=== PATIENT | female | born 1975 | race Caucasian/White ===

== ENCOUNTER 2022-12-05 23:35 | Emergency (ER) | payer BC, SELFPAY ==
[2022-12-05 23:35] VITALS: BP 130/96; PULSE 78; RESP 16; TEMP 36.8; O2SAT 97; BMI 37.8
--- NOTE | 2022-12-05 23:38 | XR_ITS ---
PROCEDURE INFORMATION: Exam: XR Left Hand Exam date and time: 12/05/2022 11:47 PM Age: 47 years old Clinical indication: Injury or trauma; Other: Object fell on PT; Hand; Left; Patient HX: Shelf fell on patient, laceration near 3rd mcp joint. ; Additional info: Pain TECHNIQUE: Imaging protocol: Radiologic exam of the left hand. Views: 3 or more views. COMPARISON: No relevant prior studies available. FINDINGS: Bones/joints: Normal. No fracture identified. Soft tissues: Normal. IMPRESSION: No acute findings.
--- NOTE | 2022-12-05 23:38 | XR_ITS ---
PROCEDURE INFORMATION: Exam: XR Left Shoulder Exam date and time: 12/05/2022 11:44 PM Age: 47 years old Clinical indication: Left; Patient HX: Shelf fell on shoulder, C/O pain TECHNIQUE: Imaging protocol: Radiologic exam of the left shoulder. Views: 2 or more views. COMPARISON: No relevant prior studies available. FINDINGS: Bones/joints: Possible partial posterior subluxation without complete dislocation of the humeral head in relation to the glenoid may be present. No evident fracture. No other bony abnormality. Soft tissues: Normal. IMPRESSION: Possible partial posterior subluxation of the humerus.
--- NOTE | 2022-12-06 00:15 | HMH.EDWNDL ---
Discharge Plan Disposition Patient Disposition: Home, Self-Care Prescriptions Prescriptions: New cephalexin [cephalexin] 500 mg capsule 500 mg PO TID Qty: 30 0RF Referrals Follow up/Referrals: Provider,Referral, MD [Primary Care Provider] - See instructions Clinical Impressions Clinical Impression: Laceration, Extensor tendon laceration of hand with open wound, Sprain of left shoulder Instructions Patient Instructions: DI for Laceration Repair Discharge ED Provider: Abilio (ED)Cristhian Wound/Laceration HPI General Chief Complaint: Wound/Laceration Stated Complaint: laceration Time Seen by Provider: 12/06/22 00:15 Mode of Arrival: EMS Source of Information: Patient and Medical Record Limitations: No Limitations Description of Symptoms (Recalled from ER Triage Doc. by RN): pt states was putting a shelf togerther and it fell and landedon lt shoulder. pt c/o lacertion on lt hand and unable to move lt middle and ring finger and lt shoulder pain History of Present Illness HPI narrative: pt put lt hand through glass shelf with lac lt hand and also injured lt shoulder -pt is lt handed Onset (ago): hour(s) Extremity Location: Left: shoulder and hand Place: home Context: accidental Associated symptoms: none Related Data Previous Rx's Medication Instructions Recorded cephalexin 500 mg capsule 500 mg PO TID #30 caps 12/06/22 Allergies Allergy/AdvReac Type Severity Reaction Status Date / Time NSAIDS (Non-Steroidal AdvReac Verified 12/05/22 23:38 Anti-Inflamma [facility] Disclaimer: The information contained in this section may have been updated after the patient was seen, as this information can be updated by other users. Social History Smoking Status: Never smoker alcohol intake: never current occupational status: employed Travel in the last 8 weeks: None ROS Obtained: Yes All systems reviewed & no additional complaints except as documented Physical Exam General General appearance: alert Head Head exam: normocephalic Eye Eye exam: Present PERRL and EOMI ENT ENT exam: Present mucous membranes moist Neck Neck exam: Present trachea midline Respiratory Respiratory exam: Absent respiratory distress Cardiovascular Cardiovascular exam: Present regular rate Abdominal Exam Abdominal exam: Present soft Extremities Exam Extremities exam: Present other (lt hand with 1 cm lac with flex deformity lt 3rd figer ) Neurological Exam Neurological exam: Present alert, oriented X3 and CN II-XII intact Psychiatric Psychiatric exam: Present normal affect Skin Skin exam: Absent rash Medical Decision Making Medical Records Medical records reviewed: Yes I reviewed the patient's medical records. Mryon Inquiry Pt receiving controlled substance: No Vital Signs: 12/05/22 23:35 12/06/22 02:06 Temperature 98.3 F 98.3 F Temperature Source Oral Oral Pulse Rate 71 Pulse Rate [Right] 78 Respiratory Rate 16 16 Blood Pressure 128/69 Blood Pressure [Right Arm] 130/96 H Blood Pressure Mean [Right Arm] 107 02 Sat by Pulse Oximetry 97 Lab Data Lab results reviewed: Yes I reviewed the patient's lab results. Orders (Tests/Meds): ORDERS Category Date Time Status CT shoulder LT wo con Stat Cat Scan 12/06/22 01:05 Completed XR hand LT min 3V Stat Exams 12/05/22 23:38 Completed XR shoulder LT min 2V Stat Exams 12/05/22 23:38 Completed Radiology Data #1: Image(s): Chest and Shoulder Image Reviewed: Yes I have reviewed radiologist's interpretation Preliminary Findings: No Fracture Seen CT Data CT Scan: Other (shoulder) Time Received: 02:[address] Reviewed: Yes I have viewed the radiologist's interpretation Preliminary Findings: No Fracture Seen US Data ED US Reviewed: Yes I have viewed radiologist's interpretation Physician Consults Physician Consulted: hand Reason -: Pt condition Medical Decision Narrative: has lac with ext tendon lac and wi
--- NOTE | 2022-12-06 00:32 | PC.NURSE ---
called [facility] to speak with hand surgeon
--- NOTE | 2022-12-06 00:46 | PC.NURSE ---
JORY Storm speaking with at this time
--- NOTE | 2022-12-06 01:05 | CT_ITS ---
PROCEDURE INFORMATION: Exam: CT Left Upper Extremity Without Contrast, Shoulder Exam date and time: 12/06/2022 1:23 AM Age: 47 years old Clinical indication: Abnormal findings; Abnormal imaging study of the limbs; Lt shoulder; Additional info: Abnormal xray TECHNIQUE: Imaging protocol: Computed tomography of the left upper extremity without contrast. Exam focused on the shoulder. Radiation optimization: All CT scans at this facility use at least one of these dose optimization techniques: automated exposure control; mA and/or kV adjustment per patient size (includes targeted exams where dose is matched to clinical indication); or iterative reconstruction. REPORTING DATA: Count of CT and Cardiac NM exams in prior 12 months: This patient has received 0 known CTs and 0 known cardiac nuclear medicine studies in the 12 months prior to the current study. COMPARISON: CR XR SHOULDER LT MIN 2V 12/05/2022 11:44 PM FINDINGS: Bones/joints: No acute fracture. Os acromiale. Mild degenerative changes of acromioclavicular joint. No dislocation. Soft tissues: Minimal focal soft tissue stranding. IMPRESSION: No fracture. If pain persists, consider nonemergent MRI for further evaluation.
--- NOTE | 2022-12-06 01:27 | PC.NURSE ---
Hand cleaned and covered with dressing. Small volar splint placed onto the patients Left hand/wrist per MD request. CR
[2022-12-06 02:06] VITALS: BP 128/69; PULSE 71; RESP 16; TEMP 36.8; O2SAT 98
== END 2022-12-06 02:21 | disposition home or self-care (01) ==
PROVIDERS: Emergency Provider Emergency Medicine
DX: S66.323A Laceration of extensor muscle, fascia and tendon of left middle finger at wrist and hand level, initial encounter (principal); S66.324A Laceration of extensor muscle, fascia and tendon of right ring finger at wrist and hand level, initial encounter; S43.402A Unspecified sprain of left shoulder joint, initial encounter; W25.XXXA Contact with sharp glass, initial encounter; W20.8XXA Other cause of strike by thrown, projected or falling object, initial encounter
CPT/HCPCS: 12041; 73030; 73130; 73200; 99284; 99285

== ENCOUNTER → 2022-12-21 09:15 | Outpatient (CLI) | payer BC, SELFPAY ==
[2022-12-21 19:36] LABS: Amphetamine/Metha Screen,Urine Negative ng/ml (<1000)
[2022-12-21 19:37] LABS: Barbiturates Screen,Urine Negative ng/ml (<200)
[2022-12-21 19:38] LABS: Benzodiazepines Screen,Urine Negative ng/ml (<200); Cannabinoid Screen,Urine Negative ng/ml (<50)
[2022-12-21 19:39] LABS: Cocaine Screen,Urine Negative ng/ml (<300)
[2022-12-21 19:40] LABS: Methadone Screen,Urine Negative ng/ml (<300); Opiate Screen,Urine Negative ng/ml (<300)
[2022-12-21 19:41] LABS: Phencyclidine Screen,Urine Negative ng/ml (<25)
== END ==
PROVIDERS: PCP Nurse Practitioner Family; Visit Provider Nurse Practitioner Family
DX: Z79.899 Other long term (current) drug therapy (principal)
CPT/HCPCS: 80305

== ENCOUNTER 2022-12-27 19:43 | Emergency (ER) | payer BC, SELFPAY ==
[2022-12-27] VITALS (7 sets, daily range): BP systolic 133–169; BP diastolic 73–91; PULSE 64–83; RESP 16–24; TEMP 37–37.2; O2SAT 96–99; BMI 37.8
--- NOTE | 2022-12-27 19:47 | ECG_ITS ---
APPROVED REPORT Exam: Resting ECG HR:76 bpm ECG Measurements Heart Rate 76 AXES MD 151 P 56 QRSd 86 QRS 17 QT 369 T 20 QTc 400 Conclusion SINUS RHYTHM NORMAL ECG UNCONFIRMED REPORT Electronically signed by : Kayden Walter MD 12/27/2022 21:10:49
--- NOTE | 2022-12-27 20:03 | XR_ITS ---
PROCEDURE INFORMATION: Exam: XR Chest Exam date and time: 12/27/2022 8:08 PM Age: 47 years old Clinical indication: Sternal or substernal pain; Additional info: Chest pain TECHNIQUE: Imaging protocol: Radiologic exam of the chest. Views: 2 views. COMPARISON: CT SHOULDER LT WO CON 12/06/2022 1:23 AM FINDINGS: Lungs: Unremarkable. No consolidation. Pleural spaces: Unremarkable. No pleural effusion. No pneumothorax. Heart/Mediastinum: Unremarkable. No cardiomegaly. Bones/joints: Moderate thoracic scoliosis. No acute fracture. IMPRESSION: No acute disease
--- NOTE | 2022-12-27 20:21 | HMH.EDCP ---
Discharge Plan Disposition Patient Disposition: Home, Self-Care Chief Complaint: Chest Pain Prescriptions Prescriptions: No Action valacyclovir [Valtrex] 1 gram tablet 1,000 mg PO Q8H 7 Days Qty: 21 0RF Rx Instructions: 1000mg TID x 7 days then 1000mg daily valacyclovir [Valtrex] 1 gram tablet 1,000 mg PO DAILY 30 Days Qty: 30 3RF duloxetine [Cymbalta] 60 mg capsule,delayed release(DR/EC) 60 mg PO DAILY Qty: 30 2RF pregabalin 150 mg capsule 150 mg PO BID Qty: 60 0RF Referrals Follow up/Referrals: Young Swartz APRN [Primary Care Provider] - See instructions Clinical Impressions Clinical Impression: Atypical chest pain, Seizure-like activity Instructions Patient Instructions: DI for Atypical Chest Pain Discharge ED Provider: Abilio (ED),Cristhian Coughlin Chest Pain HPI General Chief Complaint: Chest Pain Stated Complaint: Chest Pain Time Seen by Provider: 12/27/22 20:00 Mode of Arrival: Ambulatory Source of Information: Patient and Medical Record Limitations: No Limitations Description of Symptoms (Recalled from ER Triage Doc. by RN): pt to ER POV, ambulatory, complaints of chest pain that statrted two days ago after dx from PCP of shingles. Descirbes pain a pressure in center of chest. Pt also experiences syncope this afternoon without hitting head. Experiencing n/v/d past week. hx of heart attack with cath in 2020. History of Present Illness HPI narrative: hx of chest pain and recent dx of shingles - pt with reported near syncopal episode - also has dec po intake over the last 2 days - MD complaint: chest pain Onset (ago): day(s) Duration: intermittent Activity at onset: during rest Severity: moderate Risk Factors for CAD: Family Hx of CAD Treatments prior to or on arrival for Cardiac Chest Pain: none BEATA Score for Non-Stemi Age of Patient: 40-49 years old Heart Rate: 50-69 bpm Systolic Blood Pressure: 120-139 mmhg Serum Creatinine: 0.80-1.19 mg/dl CHF Killip Class: I-No CHF Other Risk Factors: None Non-Stemi Risk Score: 69 Risk Stratification: 1-108 = Low Risk Related Data On Oral Contraceptives: No Previous Rx's Medication Instructions Recorded duloxetine 60 mg capsule,delayed 60 mg PO DAILY #30 caps 12/21/22 release (Cymbalta) pregabalin 150 mg capsule 150 mg PO BID #60 caps 12/21/22 valacyclovir 1 gram tablet 1,000 mg PO DAILY 30 days #30 tabs 12/21/22 (Valtrex) valacyclovir 1 gram tablet 1,000 mg PO Q8H 7 days #21 tabs 12/21/22 (Valtrex) Allergies Allergy/AdvReac Type Severity Reaction Status Date / Time NSAIDS (Non-Steroidal AdvReac Verified 12/21/22 14:59 Anti-Inflamma PFSH [facility] Disclaimer: The information contained in this section may have been updated after the patient was seen, as this information can be updated by other users. Surgical History (Updated 12/21/22 @ 15:02 by Jennifer Wade) History of hysterectomy History of tonsillectomy History of tubal ligation Family History Other Asthma Hypertension Social History Smoking Status: Former smoker alcohol intake: never current occupational status: employed Travel in the last 8 weeks: None ROS Obtained: Yes All systems reviewed & no additional complaints except as documented Physical Exam General General appearance: alert Head Head exam: normocephalic Eye Eye exam: Present PERRL and EOMI; Absent scleral icterus ENT ENT exam: Present mucous membranes moist Neck Neck exam: Present trachea midline Respiratory Respiratory exam: Absent respiratory distress Cardiovascular Cardiovascular exam: Present regular rate Abdominal Exam Abdominal exam: Present soft Extremities Exam Extremities exam: Present full ROM and other (lt upper ext in splint ) Neurological Exam Neurological exam: Present alert, oriented X3 and CN II-XII intact; Absent motor sensory deficit Psychiatric Psyc
[2022-12-27 20:35] LABS: Basophils % 0.2 % (0.1-2.0); Eosinophils % 0.2 % (0.1-12.0); Hemoglobin 13.7 g/dL (12.2-16.2); Lymphocytes # 1.7 K/mm3 (0.7-4.5); Lymphocytes % 11.6 % (10-50); Mean Corpuscular Hemoglobin 27.2 pg (27.0-31.2); Mean Corpuscular Volume 85.1 fl (81-99); Monocytes # 0.6 K/mm3 (0.1-1.0); Monocytes % 4.1 % (1.7-9.3); Neutrophils # 12.3 K/mm3 (1.8-7.8); Neutrophils % 83.9 % (37.0-80.0); Platelet Count 318 K/mm3 (142-424); Red Blood Count 5.05 M/mm3 (4.20-5.40); Red Cell Distribution Width 13.4 % (11.5-17.5); White Blood Count 14.6 K/mm3 (4.8-10.8)
[2022-12-27 20:41] LABS: Anion Gap 12.9 mEq/L (5-15); Blood Urea Nitrogen 14 mg/dl (7-17); Calcium 8.9 mg/dl (8.4-10.2); Carbon Dioxide 27 mmol/L (22.0-30.0); Chloride 107 mmol/L (98-107); Creatinine Clearance Estimated 111 mL/min (50-200); Estimated Glomerular Filt Rate 67 ml/min (>60); GFR (African American) 81 ML/MIN (>60); Glucose 133 mg/dl (74-100); Magnesium 1.9 mg/dl (1.6-2.3); Potassium 3.9 mmoL/L (3.5-5.1); Sodium 143 mmol/L (136-145)
[2022-12-27 20:58] LABS: Free T4 (Free Thyroxine) 0.79 ng/dl (0.78-2.19)
[2022-12-27 21:03] LABS: Troponin I < 0.01 ng/ml (0.00-0.034)
--- NOTE | 2022-12-27 21:37 | PC.NURSE ---
Addendum entered by Ganesh Whitfield RN 12/27/22 21:55: This event occurred approx at 2030 on 12/27/22 Original Note: Patient presenting with seizure like activity in room. When entering room, patient tracking this RN with eyes when walking to bedside. Upon assessment patient presents with eyes open, jerking and shaking movements making gagging sounds. Patient remains at 99% O2 saturation on room air. After jerking and shaking cease, patient immediately asks where is my sister? When patient asked her name she responds with crystal . No slurring or aphasia present. Seizure pads placed for patient safety. Patient will make eye contact with RN when orientation questions asked, but when instructed to follow finger with eyes only without moving head, patient cannot complete. Patient asking multiple questions about son, and whereabouts. Clear, concise speak present.
--- NOTE | 2022-12-27 21:39 | PC.NURSE ---
pt sister alerted us to the pt having a seizure like activity upon entering the room the pt was shaking and jerking around in the bed and making a gagging sound the pts vital signs were at baseline and the pt was immediatly responsive to her name. pt did not have a notable postictal period.
--- NOTE | 2022-12-27 22:30 | PC.NURSE ---
Patient with c/o headache at 10/10 pain. Attempted to medicate patient with 650mg tylenol, to which patient refused. She started to raise her voice, and yell You all think I'm pill seeking. I cant believe that you all won't give me anything stronger than tylenol. I can get that over the counter. You all don't care that I am in pain. Patient refused to take tylenol medication provided. Patient then states that you dont care that Im going to get another night of no sleep. When my son with special needs acts up, I will bring him to you all to watch. Patient is very upset with care at this time. Wishes to speak with Doctor. notified.
--- NOTE | 2022-12-28 00:55 | PC.NURSE ---
@ 7800 -This RN and MD at bedside to review results. Pt became upset and said You're not supposed to give results to somebody else before me, the patient . Dr. Knox reported, well I apologize, is this not someone you'd trust to have back here and know your results? . Pt stated I do trust her but you're not supposed to talk to her first. And you are acting like I am drug seeking and giving me tylenol for shingles, come on . MD stated I can give you what I feel is appropriate to treat you . Pt stated, I can get tylenol at the house and I can tell it by your face you think I am drug seeking and I'm not . reported that she was seen by Young in the office on 12/21 and pt refused stating I have only had this for 3 days and tylenol won't do anything . Pt identifies the person at her bedside as a friend but earlier this shift pt called this person her sister. MD stated when her sister asked for a blanket, MD stated her tests so far have been normal . 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 Pt was coming off the bed with her IV and tubing wrapped in the railing, I assisted her back into bed and removed her IV from her Right AC and dressing applied. She and her sister/friend collected her phone, purse and shoes, and she left the room. She was yelling in the hallway of You don't have to follow me out, I'm not drug seeking! Pt was shown to the exit.
== END 2022-12-27 22:56 | disposition home or self-care (01) ==
PROVIDERS: Emergency Provider Emergency Medicine; PCP Nurse Practitioner Family
DX: R07.89 Other chest pain (principal); R56.9 Unspecified convulsions; Z87.891 Personal history of nicotine dependence
CPT/HCPCS: 71046; 80048; 83735; 84439; 84484; 85025; 93005; 96360; 99285

== ENCOUNTER 2022-12-28 11:57 | Emergency (ER) | payer BC, SELFPAY ==
[2022-12-28] VITALS (7 sets, daily range): BP systolic 118–169; BP diastolic 72–91; PULSE 53–72; RESP 16–25; TEMP 36.6–36.8; O2SAT 98–100; BMI 33.9
[2022-12-28 12:22] LABS: Microscopic, Urine URINE MICROSCOPIC (MICROSCOPIC)
--- NOTE | 2022-12-28 12:24 | CT_ITS ---
FINAL REPORT CLINICAL HISTORY: Seizures FINDINGS: Axial images of the head were obtained without contrast. Coronal and sagittal reformatted images were also obtained.This study was performed with techniques to keep radiation doses as low as reasonably achievable (ALARA). Individualized dose reduction techniques using automated exposure control or adjustment of mA and/or kV according to the patient''s size were employed. There is no evidence of intracranial hemorrhage or mass. The ventricular size is within normal limits. There is no evidence of shift of the midline structures. No abnormal extra axial fluid collection is identified. No skull abnormality is seen on the bone window images. IMPRESSION: No acute intracranial abnormality. Reviewed, Interpreted and Dictated by Garth Connors III, MD Transcribed by Sheela Rowe Authenticated and [facility]
--- NOTE | 2022-12-28 12:25 | HMH.EDSEIZ ---
Discharge Plan Disposition Patient Disposition: Home, Self-Care Prescriptions Prescriptions: New levetiracetam [Keppra] 500 mg tablet 500 mg PO BID 14 Days Qty: 28 0RF No Action duloxetine [Cymbalta] 60 mg capsule,delayed release(DR/EC) 60 mg PO DAILY pregabalin 150 mg capsule 150 mg PO BID tramadol 50 mg Tablet 50 mg PO Q6H PRN (Reason: Broken left wrist) Referrals Follow up/Referrals: Young Swartz APRN [Primary Care Provider] - See instructions Clinical Impressions Clinical Impression: Generalized seizure Instructions Patient Instructions: DI for Seizure Disorder -- Adult, DI for Seizure (Not Epilepsy/Seizure Disorder), DI for Seizure Disorder -- Child Discharge ED Provider: Redd Muse Seizures HPI General Chief Complaint: Seizure Stated Complaint: seizure Time Seen by Provider: 12/28/22 12:15 Mode of Arrival: EMS Source of Information: Patient and EMS Limitations: Altered Mental Status Description of Symptoms (Recalled from ER Triage Doc. by RN): pt to ed via ems c/o seizure-like activity. per ems, pt was leaving pcp office where she was being seen for new onset seizures. pt states she has a referral to see neurology. on arrival to ed, pt reports a headache and back pain. ems states she was lowered to the concrete when her symptoms started. History of Present Illness HPI Narrative: 47-year-old white female presents with seizures. She was at the doctor's office and had a seizure just outside the waiting room. She has had previous seizures most of them occurring recently. I witnessed that is accompanying her reports that seizure she has witnessed are usually 45 seconds to a minute and a half she reports they are generalized in character the patient is also awaiting a surgery on her left wrist and hand for injuries sustained when she fell through a window. She apparently cut some tendons and which were to be repaired. She is allergic to nonsteroidals and has a history of migraines Related Data Home Medications Medication Instructions Recorded Confirmed duloxetine 60 mg capsule,delayed 60 mg PO DAILY Depression 12/28/22 12/28/22 release (Cymbalta) pregabalin 150 mg capsule 150 mg PO BID Pain 12/28/22 12/28/22 tramadol 50 mg tablet 50 mg PO Q6H PRN Broken left wrist 12/28/22 12/28/22 Previous Rx's Medication Instructions Recorded levetiracetam 500 mg tablet 500 mg PO BID 2 weeks #28 tabs 12/28/22 (Kejulianara) Allergies Allergy/AdvReac Type Severity Reaction Status Date / Time NSAIDS (Non-Steroidal AdvReac Verified 12/28/22 10:34 Anti-Inflamma [facility] Disclaimer: The information contained in this section may have been updated after the patient was seen, as this information can be updated by other users. Surgical History History of hysterectomy History of tonsillectomy History of tubal ligation Family History Other Asthma Hypertension Social History Smoking Status: Never smoker alcohol intake: never current occupational status: employed Travel in the last 8 weeks: None ROS Obtained: Yes Systems reviewed as appropriate & no additional complaints except as documented Physical Exam General General appearance: alert and anxious Head Head exam: atraumatic and normocephalic Eye Eye exam: Present normal appearance, PERRL and EOMI Neck Neck exam: Present tenderness Respiratory Respiratory exam: Present normal lung sounds bilaterally and respiratory distress Cardiovascular Cardiovascular exam: Present regular rate and normal rhythm Extremities Exam Extremities exam: Present other (Left hand and wrist is bandaged.) Neurological Exam Neurological exam: Present alert, oriented X3 and CN II-XII intact Medical Decision Making Medical Records MR Comment: 47-year-old whi
--- NOTE | 2022-12-28 12:28 | CT_ITS ---
FINAL REPORT CLINICAL HISTORY: Seizure with possible head trauma/ neck tenderness FINDINGS: Axial CT images of the cervical spine were obtained without contrast. Sagittal and coronal reformatted images were also obtained. This study was performed with techniques to keep radiation doses as low as reasonably achievable (ALARA). Individualized dose reduction techniques using automated exposure control or adjustment of mA and/or kV according to the patient's size were employed. There is no evidence of fracture or dislocation. The bony alignment is normal. There is [id number] degenerative change at the C5-6 and C6-7 levels with disc osteophyte complex is present. There is no evidence of canal stenosis. No paraspinous soft tissue abnormality is seen. Limited images of the upper thorax are unremarkable. IMPRESSION: No fracture or acute bony abnormality identified. [id number] degenerative change at the C5-6 and C6-7 levels as described above. Reviewed, Interpreted and Dictated by Garth Connors III, MD Transcribed by Sheela Rowe Authenticated and [facility]
[2022-12-28 12:30] LABS: Appearance,Urine CLEAR (Clear); Bilirubin,Urine Negative (Negative); Blood, Urine Negative (Negative); Color,Urine YELLOW (Yellow); Glucose,Urine (UA) Negative (Negative); Ketones,Urine Negative (Negative); Leukocyte Esterase,Urine Negative (Negative); Nitrate,Urine POSITIVE (Negative); Protein,Urine Negative (Negative); Urobilinogen,Urine 0.2 EU/dl (0.2)
[2022-12-28 12:43] LABS: Barbiturates Screen,Urine Negative ng/ml (<200); Benzodiazepines Screen,Urine Negative ng/ml (<200)
[2022-12-28 12:44] LABS: Amphetamine/Metha Screen,Urine Negative ng/ml (<1000)
[2022-12-28 12:45] LABS: Bacteria,Urine 3+ /lpf; Cannabinoid Screen,Urine Negative ng/ml (<50); Cocaine Screen,Urine Negative ng/ml (<300); Squamous Epithelial Cell,Urine Occasional #/hpf (0-5); WBC,Urine Occasional #/hpf (0-3)
[2022-12-28 12:46] LABS: Methadone Screen,Urine Negative ng/ml (<300)
[2022-12-28 12:47] LABS: Opiate Screen,Urine Negative ng/ml (<300); Phencyclidine Screen,Urine Negative ng/ml (<25)
--- NOTE | 2022-12-28 12:58 | PC.NURSE ---
pt assisted with bedpan
--- NOTE | 2022-12-28 13:06 | PC.NURSE ---
1300-staff called to room per pt sister, pt have what appeared to be a seizure. pt on her L side, seizure pad on bed rails. dora corderorn also at BS. ER to BS gave verbal order for Ativan 1mg IV one time dose. Seizure like activity lasted approx 45 seconds. Pt with purposeful eye opening response approx 15 seconds after seizure activity stopped. Pt attempting to talk to staff.
[2022-12-28 13:18] LABS: Basophils # 0.1 K/mm3 (0-0.2); Eosinophils # 0.1 K/mm3 (0.0-0.4); Eosinophils % 0.9 % (0.1-12.0)
[2022-12-28 13:25] LABS: Alanine Aminotransferase 29 U/L (12-78); Albumin Level 3.9 g/dl (3.5-5.0); Albumin/Globulin Ratio 1.3 (1.1-1.8); Alkaline Phosphatase 91 U/L (38-126); Anion Gap 11.3 mEq/L (5-15); Aspartate Amino Transferase 25 U/L (14-36); Bilirubin,Total 0.5 mg/dl (0.2-1.3); Blood Urea Nitrogen 16 mg/dl (7-17); Calcium 8.8 mg/dl (8.4-10.2); Carbon Dioxide 28 mmol/L (22.0-30.0); Chloride 107 mmol/L (98-107); Creatinine Clearance Estimated 131 mL/min (50-200); Estimated Glomerular Filt Rate 77 ml/min (>60); GFR (African American) 93 ML/MIN (>60); Globulin 2.9 g/dL (1.3-3.2); Glucose 98 mg/dl (74-100); Lactic Acid 1.5 mmol/L (0.7-2.1); Potassium 4.3 mmoL/L (3.5-5.1); Sodium 142 mmol/L (136-145); Total Protein,Serum 6.8 g/dl (6.3-8.2)
--- NOTE | 2022-12-28 13:25 | CT_ITS ---
FINAL REPORT CLINICAL HISTORY: Seizures new onset FINDINGS: Head CT with contrast: CT examination of the head was performed after the administration of intravenous contrast. The ventricles are normal in size and configuration. No extra-axial fluid collections are noted. No significant bony abnormality is seen. No mass effect or midline shift is present. No intracranial enhancement is identified. IMPRESSION: Unremarkable CT examination of the head with contrast Reviewed, Interpreted and Dictated by Garth Connors III, MD Transcribed by Sheela Rowe Authenticated and [facility]
[2022-12-28 13:31] LABS: HCG Qualitative, Serum Negative (Negative)
[2022-12-28 13:32] LABS: Basophils % 0.5 % (0.1-2.0); Hematocrit 38.4 % (37.0-47.0); Lymphocytes # 2.7 K/mm3 (0.7-4.5); Lymphocytes % 24.7 % (10-50); Mean Corpuscular HGB Conc 31.8 g/dL (31.8-35.4); Mean Corpuscular Hemoglobin 27.3 pg (27.0-31.2); Mean Corpuscular Volume 85.8 fl (81-99); Mean Platelet Volume 8.1 fl (7.4-10.4); Monocytes # 0.5 K/mm3 (0.1-1.0); Monocytes % 4.6 % (1.7-9.3); Neutrophils # 7.6 K/mm3 (1.8-7.8); Neutrophils % 69.3 % (37.0-80.0); Platelet Count 289 K/mm3 (142-424); Red Blood Count 4.47 M/mm3 (4.20-5.40); Red Cell Distribution Width 13.5 % (11.5-17.5)
[2022-12-28 13:34] LABS: Hemoglobin 12.2 g/dL (12.2-16.2)
--- NOTE | 2022-12-28 13:37 | PC.NURSE ---
JORY BASS at
--- NOTE | 2022-12-28 13:52 | PC.NURSE ---
pt soiled on her clothing and in bed; clothes and linens changed with assistance from myself and NIDIA Buckley. Call tate within reach, no other needs at this time. Family at BS
--- NOTE | 2022-12-28 14:15 | PC.NURSE ---
notified ER pt ct scans are read in the computer
== END 2022-12-28 15:46 | disposition home or self-care (01) ==
PROVIDERS: Emergency Provider Emergency Medicine; PCP Nurse Practitioner Family
DX: G40.309 Generalized idiopathic epilepsy and epileptic syndromes, not intractable, without status epilepticus (principal)
CPT/HCPCS: 70450; 70460; 72125; 80053; 80305; 81001; 83605; 83735; 84703; 85025; 87086; 87088; 87186; 96374; 96375; 99285; J1953; Q9967

== ENCOUNTER 2023-01-25 11:11 | Emergency (ER) | payer BC, SELFPAY ==
[2023-01-25 11:11] VITALS: BP 163/84; PULSE 51; RESP 16; TEMP 36.9; O2SAT 98; BMI 30.2
--- NOTE | 2023-01-25 11:26 | HMH.EDGENADL ---
Discharge Plan Disposition Patient Disposition: Left Against Medical Advice Condition: Good Prescriptions Prescriptions: No Action valacyclovir [Valtrex] 1 gram tablet 1,000 mg PO BID Qty: 180 0RF pregabalin 150 mg capsule 150 mg PO BID Qty: 60 0RF docusate sodium 100 mg capsule 100 mg PO DAILY sumatriptan succinate 50 mg tablet 50 mg PO ONCE PRN ondansetron 4 mg tablet,disintegrating 4 mg PO Q8H PRN (Reason: nausea and vomiting) Qty: 30 0RF duloxetine [Cymbalta] 60 mg capsule,delayed release(DR/EC) 60 mg PO DAILY levetiracetam [Keppra] 500 mg tablet 500 mg PO BID 14 Days Qty: 28 0RF Referrals Follow up/Referrals: Cristhian Knox MD [Primary Care Provider] - See instructions Clinical Impressions Clinical Impression: Breakthrough seizure Instructions Patient Instructions: DI for Seizure Disorder -- Adult, DI for Seizure (Not Epilepsy/Seizure Disorder), DI for Seizure Disorder -- Child Discharge ED Provider: Javier Taveras General Adult HPI General Chief complaint: Seizure Stated complaint: seizure Time Seen by Provider: 01/25/23 11:13 Mode of Arrival: EMS Source of Information: Patient Limitations: No Limitations Description of Symptoms (Recalled from ER Triage Doc. by RN): Presents to ED after witnessed seizure like activity at 's office. Patient reports 10/10 headache with vision changes. No noted traums due to assisted fall to the gorund; patient did hit left side of head on corner of the doorway. Patient is currently taking 500mg of Kepra once daily (Rx 500mg Kepra twice a day). Patient states last seizure was report to be 2 weeks ago. History of Present Illness HPI narrative: Patient is a 47-year-old female with a history of possible epilepsy has been having seizures for 6 weeks recently worked up at [facility] in [place] with a 3-day hospitalization and continuous EEG monitoring sent home with Keppra 500 twice daily and she presents today with a seizure from primary care doctor's office. Unclear as to the nature of the seizures she is alert awake and oriented right now states that she believes she had a seizure. She also states that she has been noncompliant with her medications and instead of taking it twice a day she has been taking it once a day she has had a dose this morning. She denies any fevers chills urinary symptoms any other symptoms right now is back to her baseline without any complaints. Related Data Home Medications Medication Instructions Recorded Confirmed duloxetine 60 mg capsule,delayed 60 mg PO DAILY Depression 12/28/22 01/25/23 release (Cymbalta) docusate sodium 100 mg capsule 100 mg PO DAILY 01/10/23 01/25/23 sumatriptan succinate 50 mg tablet 50 mg PO ONCE PRN 01/10/23 01/25/23 Previous Rx's Medication Instructions Recorded levetiracetam 500 mg tablet 500 mg PO BID 2 weeks #28 tabs 12/28/22 (Keppra) ondansetron 4 mg disintegrating 4 mg PO Q8H PRN nausea and 01/10/23 tablet vomiting #30 tabs pregabalin 150 mg capsule 150 mg PO BID Pain #60 caps 01/25/23 valacyclovir 1 gram tablet 1,000 mg PO BID #180 tabs 01/25/23 (Valtrex) Allergies Allergy/AdvReac Type Severity Reaction Status Date / Time NSAIDS (Non-Steroidal AdvReac Verified 01/25/23 10:38 Anti-Inflamma [facility] Disclaimer: The information contained in this section may have been updated after the patient was seen, as this information can be updated by other users. Medical History (Updated 01/25/23 @ 12:20 by Cee Ochoa RN) Neuropathy Patient new to facility Surgical History History of hysterectomy History of tonsillectomy History of tubal ligation Family History Other Asthma Hypertension Social History Smoking Status: Never smoker alcohol intake: never curren
--- NOTE | 2023-01-25 11:39 | PC.NURSE ---
faxed request for records from [facility].
[2023-01-25 11:42] LABS: Basophils % 0.4 % (0.1-2.0); Eosinophils # 0.1 K/mm3 (0.0-0.4); Hematocrit 37.1 % (37.0-47.0); Hemoglobin 11.9 g/dL (12.2-16.2); Lymphocytes # 1.6 K/mm3 (0.7-4.5); Mean Corpuscular HGB Conc 32.1 g/dL (31.8-35.4); Mean Corpuscular Hemoglobin 27.3 pg (27.0-31.2); Mean Platelet Volume 8.3 fl (7.4-10.4); Monocytes # 0.4 K/mm3 (0.1-1.0); Monocytes % 6.5 % (1.7-9.3); Neutrophils # 4.2 K/mm3 (1.8-7.8); Neutrophils % 67.1 % (37.0-80.0); Platelet Count 317 K/mm3 (142-424); Red Blood Count 4.36 M/mm3 (4.20-5.40); Red Cell Distribution Width 13.7 % (11.5-17.5); White Blood Count 6.3 K/mm3 (4.8-10.8)
[2023-01-25 11:45] LABS: Chloride 105 mmol/L (98-107); Potassium 3.9 mmoL/L (3.5-5.1); Sodium 140 mmol/L (136-145)
[2023-01-25 11:47] LABS: Alanine Aminotransferase 22 U/L (12-78); Aspartate Amino Transferase 28 U/L (14-36); Bilirubin,Total 0.4 mg/dl (0.2-1.3); Blood Urea Nitrogen 10 mg/dl (7-17); Creatinine Clearance Estimated 100 mL/min (50-200); Estimated Glomerular Filt Rate 77 ml/min (>60); GFR (African American) 93 ML/MIN (>60)
[2023-01-25 11:48] LABS: Albumin Level 3.8 g/dl (3.5-5.0); Albumin/Globulin Ratio 1.4 (1.1-1.8); Alkaline Phosphatase 103 U/L (38-126); Anion Gap 9.9 mEq/L (5-15); Calcium 9.5 mg/dl (8.4-10.2); Carbon Dioxide 29 mmol/L (22.0-30.0); Globulin 2.8 g/dL (1.3-3.2); Glucose 89 mg/dl (74-100); Total Protein,Serum 6.6 g/dl (6.3-8.2)
[2023-01-25 12:14] LABS: Ethyl Alcohol < 10 mg/dl (0-10)
--- NOTE | 2023-01-25 12:14 | PC.NURSE ---
Patient reported feeling extremely agitated and anxious patient requesting to go krystina. MD notified no new orders. Nurse staff discussed risk and benefits of leaving AMA. AMA document signed patient ambulated out of ED
[2023-01-25 12:16] VITALS: BP 163/84; PULSE 53; RESP 18; TEMP 36.9; O2SAT 98
--- NOTE | 2023-02-21 09:05 | PC.NURSE ---
Have left patient several messages on her voicemail reguarding a HST. She has never returned my calls.
== END 2023-01-25 12:20 | disposition left against medical advice (07) ==
PROVIDERS: Emergency Provider Student in an Organized Health Care Education/Training Program; PCP Emergency Medicine
DX: G40.919 Epilepsy, unspecified, intractable, without status epilepticus (principal)
CPT/HCPCS: 80053; 85025; 96361; 96374; 96375; 99285; J1953

== ENCOUNTER 2023-02-02 15:09 | Emergency (ER) | payer BC, SELFPAY ==
[2023-02-02 15:10] VITALS: BP 120/85; PULSE 64; RESP 18; TEMP 37.3; O2SAT 98; BMI 31.7
[2023-02-02 15:18] VITALS: BP 120/85; PULSE 62; O2SAT 99
[2023-02-02 15:23] LABS: POC Glucose,Bedside 98 (70-110)
--- NOTE | 2023-02-02 15:27 | HMH.EDGENADL ---
Discharge Plan Disposition Patient Disposition: Home, Self-Care Condition: Good Prescriptions Prescriptions: No Action valacyclovir [Valtrex] 1 gram tablet 1,000 mg PO BID Qty: 180 0RF pregabalin 150 mg capsule 150 mg PO BID Qty: 60 0RF docusate sodium 100 mg capsule 100 mg PO DAILY sumatriptan succinate 50 mg tablet 50 mg PO ONCE PRN ondansetron 4 mg tablet,disintegrating 4 mg PO Q8H PRN (Reason: nausea and vomiting) Qty: 30 0RF duloxetine [Cymbalta] 60 mg capsule,delayed release(DR/EC) 60 mg PO DAILY levetiracetam [Keppra] 500 mg tablet 500 mg PO BID 14 Days Qty: 28 0RF Referrals Follow up/Referrals: Cristhian Knox MD [Primary Care Provider] - See instructions Activity Restrictions/Add. Instructions Additional Instructions/Restrictions: Please continue to take your seizure medications, as discussed, please follow-up for your appointment with hand specialist on Saturday at 345. Please return with any new or worsening symptoms. Clinical Impressions Clinical Impression: Breakthrough seizure Discharge ED Provider: Jesus Maher General Adult HPI General Chief complaint: PAIN Stated complaint: open stiches, seizure activity Time Seen by Provider: 02/02/23 15:27 Mode of Arrival: Wheelchair Source of Information: Patient and Spouse Limitations: No Limitations Description of Symptoms (Recalled from ER Triage Doc. by RN): PT C/O LEFT HAND PAIN AFTER HAVING A SEIZURE AT HOME ABOUT 20 MINUTES AGO. SPOUSE REPORTS PT WAS IN BATHROOM AND HAD TO PRY OPNE BR DOOR, UNKNOWN SEIZURE TIME. PT RETURN TO BASELINE OF THIS TIME History of Present Illness HPI narrative: 47-year-old female with history of seizure disorder on Keppra, recent repair of extensor tendon injury of left hand after laceration, performed at [facility], presenting for evaluation of seizure with associated acute onset severe pain of left hand and limited range of motion. Patient has limited recollection of events. She has since returned to baseline. She denies any pain elsewhere. She reports she has been compliant with Keppra therapy although per chart review has had difficulties with compliance in the past. Denies drugs or alcohol. No head injury. Was in her normal state of health prior to onset of symptoms. Pain is located on the dorsum of her left hand, describes weakness with extension of her fingers. Reports that she was discharged with splint for left upper extremity but that is since fallen off. Has had no further seizure-like activity. Related Data Home Medications Medication Instructions Recorded Confirmed duloxetine 60 mg capsule,delayed 60 mg PO DAILY Depression 12/28/22 01/25/23 release (Cymbalta) docusate sodium 100 mg capsule 100 mg PO DAILY 01/10/23 01/25/23 sumatriptan succinate 50 mg tablet 50 mg PO ONCE PRN 01/10/23 01/25/23 Previous Rx's Medication Instructions Recorded levetiracetam 500 mg tablet 500 mg PO BID 2 weeks #28 tabs 12/28/22 (Keppra) ondansetron 4 mg disintegrating 4 mg PO Q8H PRN nausea and 01/10/23 tablet vomiting #30 tabs pregabalin 150 mg capsule 150 mg PO BID Pain #60 caps 01/25/23 valacyclovir 1 gram tablet 1,000 mg PO BID #180 tabs 01/25/23 (Valtrex) Allergies Allergy/AdvReac Type Severity Reaction Status Date / Time NSAIDS (Non-Steroidal AdvReac Verified 01/25/23 10:38 Anti-Inflamma [facility] Disclaimer: The information contained in this section may have been updated after the patient was seen, as this information can be updated by other users. Medical History Neuropathy Patient new to facility Surgical History History of hysterectomy History of tonsillectomy History of tubal ligation Family History Other Asthma Hypertension Social History (Reviewed 02/02/23
[2023-02-02 15:30] VITALS: BP 136/78; PULSE 63; O2SAT 98
--- NOTE | 2023-02-02 15:42 | XR_ITS ---
PROCEDURE INFORMATION: Exam: XR Left Hand Exam date and time: 02/02/2023 3:48 PM Age: 47 years old Clinical indication: Pain; Hand; Left; Additional info: Motor weakness with extension (recent tendon surg TECHNIQUE: Imaging protocol: Radiologic exam of the left hand. Views: 1 or 2 views. COMPARISON: CR XR HAND LT MIN 3V 12/05/2022 11:47 PM FINDINGS: Bones/joints: [id number] degenerative changes of multiple joints most pronounced in scaphoid multangular joint and interphalangeal joints. No erosive changes. Periarticular osteopenia. Intact cortices. Soft tissues: Normal. IMPRESSION: Degenerative changes. Periarticular osteopenia.
--- NOTE | 2023-02-02 15:52 | PC.NURSE ---
XR AT BEDSIDE
[2023-02-02 16:14] LABS: Basophils # 0.1 K/mm3 (0-0.2); Basophils % 0.5 % (0.1-2.0); Eosinophils # 0.1 K/mm3 (0.0-0.4); Eosinophils % 1.2 % (0.1-12.0); Hematocrit 38.3 % (37.0-47.0); Hemoglobin 12.6 g/dL (12.2-16.2); Lymphocytes # 2.3 K/mm3 (0.7-4.5); Lymphocytes % 22.2 % (10-50); Mean Corpuscular HGB Conc 32.8 g/dL (31.8-35.4); Mean Corpuscular Hemoglobin 28.9 pg (27.0-31.2); Mean Corpuscular Volume 88.1 fl (81-99); Mean Platelet Volume 7.7 fl (7.4-10.4); Monocytes # 0.6 K/mm3 (0.1-1.0); Monocytes % 5.6 % (1.7-9.3); Neutrophils # 7.3 K/mm3 (1.8-7.8); Neutrophils % 70.5 % (37.0-80.0); Platelet Count 276 K/mm3 (142-424); Red Blood Count 4.35 M/mm3 (4.20-5.40); Red Cell Distribution Width 13.8 % (11.5-17.5); White Blood Count 10.3 K/mm3 (4.8-10.8)
[2023-02-02 16:17] LABS: Chloride 108 mmol/L (98-107); Potassium 4.2 mmoL/L (3.5-5.1); Sodium 142 mmol/L (136-145)
[2023-02-02 16:19] LABS: Alanine Aminotransferase 18 U/L (12-78); Aspartate Amino Transferase 22 U/L (14-36); Blood Urea Nitrogen 23 mg/dl (7-17); Creatinine Clearance Estimated 84 mL/min (50-200); Estimated Glomerular Filt Rate 59 ml/min (>60); GFR (African American) 72 ML/MIN (>60)
[2023-02-02 16:20] LABS: Albumin Level 3.7 g/dl (3.5-5.0); Albumin/Globulin Ratio 1.3 (1.1-1.8); Alkaline Phosphatase 96 U/L (38-126); Anion Gap 13.2 mEq/L (5-15); Bilirubin,Total 0.3 mg/dl (0.2-1.3); Calcium 9.1 mg/dl (8.4-10.2); Carbon Dioxide 25 mmol/L (22.0-30.0); Globulin 2.9 g/dL (1.3-3.2); Glucose 95 mg/dl (74-100); HCG Qualitative, Serum Negative (Negative); Phosphorous 4.1 mg/dl (2.5-4.5); Total Protein,Serum 6.6 g/dl (6.3-8.2)
--- NOTE | 2023-02-02 16:50 | PC.NURSE ---
requested rad [employer] images with [facility]
--- NOTE | 2023-02-02 17:00 | PC.NURSE ---
ER MD Maher at
[2023-02-02 18:09] VITALS: BP 132/72; PULSE 64; RESP 17; TEMP 36.4; O2SAT 99
[2023-02-05 17:12] LABS: Levetiracetam (Keppra) <2.0 ug/mL (10.0-40.0)
== END 2023-02-02 18:09 | disposition home or self-care (01) ==
PROVIDERS: Emergency Provider Emergency Medicine; PCP Emergency Medicine
DX: G40.919 Epilepsy, unspecified, intractable, without status epilepticus (principal); M79.642 Pain in left hand
CPT/HCPCS: 73120; 80053; 80177; 82962; 83735; 84100; 84703; 85025; 96374; 99285

== ENCOUNTER → 2023-03-13 11:00 | Outpatient (CLI) | payer BC, SELFPAY ==
[2023-03-16 23:57] LABS: Levetiracetam (Keppra) <2.0 ug/mL (10.0-40.0)
== END ==
PROVIDERS: PCP Nurse Practitioner Family; Visit Provider Nurse Practitioner Family
DX: G43.909 Migraine, unspecified, not intractable, without status migrainosus (principal)
CPT/HCPCS: 80177

== ENCOUNTER 2023-04-27 13:51 | Emergency (ER) | payer BC, SELFPAY ==
[2023-04-27 13:52] VITALS: BP 150/95; PULSE 57; RESP 18; TEMP 36.7; O2SAT 100; BMI 32.1
[2023-04-27 14:30] LABS: UTC Strep Screen (Rapid) Negative (Negative)
--- NOTE | 2023-04-27 14:39 | EXP.UTC ---
Discharge Plan Disposition Patient Disposition: Home, Self-Care Condition: Good Prescriptions Prescriptions: New ondansetron HCl 4 mg tablet 4 mg PO Q8H PRN (Reason: nausea and vomiting) Qty: 7 0RF benzonatate 100 mg capsule 100 mg PO BID PRN (Reason: cough) Qty: 6 0RF No Action valacyclovir [Valtrex] 1 gram tablet 1,000 mg PO BID Qty: 180 0RF levetiracetam [Keppra] 500 mg tablet 500 mg PO BID 30 Days Qty: 60 2RF duloxetine [Cymbalta] 60 mg capsule,delayed release(DR/EC) 60 mg PO DAILY Qty: 90 1RF pregabalin 150 mg capsule 150 mg PO BID Qty: 60 0RF sumatriptan succinate 50 mg tablet 50 mg PO NEEDED PRN (Reason: migraines) lisinopril 10 mg Tablet 10 mg PO DAILY Referrals Follow up/Referrals: Young Swartz APRN [Primary Care Provider] - See instructions Activity Restrictions/Add. Instructions Additional Instructions/Restrictions: No sign of a bacterial infection. Likely viral. Viruses can take 7-14 days to run their course. Nasal saline and bulb syringe or nose Sania to remove nasal drainage to help with nasal congestion. Hard to eat, drink, sleep with nasal congestion so important to keep this cleaned out. Monitor temp. Tylenol or Motrin as needed for pain or fever Encourage fluids, water, Gatorade, Powerade, Pedialyte if /toddler/child Warm salt water gargles Warm fluids Sore throat lozenges Sleep elevated Humidifier/vaporizer Follow-up immediately for new or worsening symptoms or no noticeable improvement over the next 48-72 hours. Monitor temperature. Seek treatment if fever develops. Follow-up immediately if new or worse symptoms worsen or no noticeable improvement over 48 hours. Increase fluids such as water, Gatorade, Powerade, juice or Pedialyte with limited formula/dietary in children No food is okay as long as you are drinking. Once ready to eat start bland such as bananas, rice, applesauce, toast. Contagious until no diarrhea, vomiting, fever times 48 hours without medication Avoid antidiarrheals unless told otherwise. Best to let the virus run its course. Follow-up immediately for new or worsening symptoms or no noticeable improvement over the next 48 hours. Clinical Impressions Clinical Impression: Nausea Upper respiratory infection Qualifiers: URI type: unspecified viral URI Qualified Code(s): J06.9 - Acute upper respiratory infection, unspecified Stand Alone Forms Stand Alone Forms: Work/School Release Instructions Patient Instructions: DI for Viral Upper Respiratory Infection -- Adult, DI for Nausea -- Adult Discharge ED Provider: Ina ([facility] [place] General Stated complaint: fever, vomiting, sore throat, bilateral ear pain Mode of Arrival: Ambulatory Source of Information: Patient Limitations: No Limitations Time Seen by Provider: 04/27/23 14:40 Description of Symptoms (Recalled from Triage Doc. by RN): nasuea, sore throat, bilateral ear pain, fever, chills, cough. She is currently being treated for shingles. HEENT Symptoms (Recalled from RN notes): Yes Resp Symptoms (Recalled from RN notes): No Skin Symptoms (Recalled from RN notes): No MS Symptoms (Recalled from RN notes): No Functional Status (Recalled from RN notes): n/a History of Present Illness Provider Complaint: 47 yr old female presents for nausea, sore throat, bilateral ear pain, fever, chills, cough. She is currently being treated for shingles. Related Data Home Medications Medication Instructions Recorded Confirmed lisinopril 10 mg tablet 10 mg PO DAILY 04/27/23 04/27/23 sumatriptan succinate 50 mg tablet 50 mg PO NEEDED PRN migraines 04/27/23 04/27/23 Previous Rx's Medication Instructions Recorded valacyclovir 1 gram tablet 1,000 mg PO BID #180 tabs 01/25/23 (Valtrex) duloxetine 60 mg capsule,delayed 60 mg PO DAILY Depression #90 caps 03/13/23 release (Cymbalta) levetiracetam 500 mg tablet 500 mg PO BID 30 days #60 tabs 03/13/23 (Kep
[2023-04-27 15:17] VITALS: BP 150/95; PULSE 57; RESP 18; TEMP 36.7; O2SAT 100
== END 2023-04-27 15:17 | disposition home or self-care (01) ==
PROVIDERS: Emergency Provider Nurse Practitioner Family; PCP Nurse Practitioner Family
DX: J06.9 Acute upper respiratory infection, unspecified (principal); R11.0 Nausea; H92.03 Otalgia, bilateral; B02.9 Zoster without complications; R07.0 Pain in throat; R50.9 Fever, unspecified; R05.9 Cough, unspecified
CPT/HCPCS: 87635; 87880; 99204; 99212; G0463

== ENCOUNTER 2023-06-08 17:51 | Emergency (ER) | payer BC, SELFPAY ==
[2023-06-08 17:53] VITALS: BP 180/86; PULSE 75; RESP 18; TEMP 36.6; O2SAT 100; BMI 32.1
--- NOTE | 2023-06-08 18:00 | PC.NURSE ---
covid/flu swab sent to lab
[2023-06-08 18:03] LABS: Coronavirus 19, PCR Not Detected (NotDetected); Influenza A, PCR Not Detected (NotDetected); Influenza B, PCR Not Detected (NotDetected)
[2023-06-08 19:09] VITALS: BP 124/83; PULSE 64; RESP 18; TEMP 36.7; O2SAT 98
--- NOTE | 2023-06-08 20:27 | HMH.EDGENADL ---
Discharge Plan Disposition Patient Disposition: Home, Self-Care Prescriptions Prescriptions: New pregabalin 150 mg capsule 150 mg PO BID Qty: 20 0RF valacyclovir [Valtrex] 1 gram tablet 1,000 mg PO BID 10 Days Qty: 20 0RF ondansetron 4 mg tablet,disintegrating 4 mg PO Q6H PRN (Reason: nausea and vomiting) Qty: 10 0RF No Action valacyclovir [Valtrex] 1 gram tablet 1,000 mg PO BID Qty: 180 0RF levetiracetam [Keppra] 500 mg tablet 500 mg PO BID 30 Days Qty: 60 2RF duloxetine [Cymbalta] 60 mg capsule,delayed release(DR/EC) 60 mg PO DAILY Qty: 90 1RF pregabalin 150 mg capsule 150 mg PO BID Qty: 60 0RF sumatriptan succinate 50 mg tablet 50 mg PO NEEDED PRN (Reason: migraines) lisinopril 10 mg Tablet 10 mg PO DAILY ondansetron HCl 4 mg tablet 4 mg PO Q8H PRN (Reason: nausea and vomiting) Qty: 7 0RF benzonatate 100 mg capsule 100 mg PO BID PRN (Reason: cough) Qty: 6 0RF Referrals Follow up/Referrals: Young Swartz APRN [Primary Care Provider] - See instructions Clinical Impressions Clinical Impression: Herpes zoster Qualifiers: Herpes zoster complications: without complications Qualified Code(s): B02.9 - Zoster without complications Discharge ED Provider: Roberto Evans General Adult HPI General Chief complaint: Upper Respiratory Infection Stated complaint: vomitting, fever, chills, rash Time Seen by Provider: 06/08/23 17:56 Mode of Arrival: Ambulatory Source of Information: Patient Limitations: No Limitations Description of Symptoms (Recalled from ER Triage Doc. 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 PT REPORTS FEVER, CHILLS, N/V, SORE THROAT AND CONGESTION X 2 DAYS. REPORTS RASH TO LOW BACK AND BUTTOCKS, REPORTS SHINGLES HX History of Present Illness HPI narrative: 47-year-old female history of hyperlipidemia, trigeminal nerve algia, intermittent shingles outbreaks of her lower back/buttocks presenting with multiple complaints. Patient states that she has felt congested, sick with flulike symptoms for the past couple of days. Works in [employer], has had numerous sick contacts. Also states that her sacral rash is getting worse on her buttocks. Ran out of medications. Related Data Home Medications Medication Instructions Recorded Confirmed lisinopril 10 mg tablet 10 mg PO DAILY 04/27/23 04/27/23 sumatriptan succinate 50 mg tablet 50 mg PO NEEDED PRN migraines 04/27/23 04/27/23 Previous Rx's Medication Instructions Recorded valacyclovir 1 gram tablet 1,000 mg PO BID #180 tabs 01/25/23 (Valtrex) duloxetine 60 mg capsule,delayed 60 mg PO DAILY Depression #90 caps 03/13/23 release (Cymbalta) levetiracetam 500 mg tablet 500 mg PO BID 30 days #60 tabs 03/13/23 (Keppra) pregabalin 150 mg capsule 150 mg PO BID Pain #60 caps 03/13/23 benzonatate 100 mg capsule 100 mg PO BID PRN cough #6 caps 04/27/23 ondansetron HCl 4 mg tablet 4 mg PO Q8H PRN nausea and 04/27/23 vomiting #7 tabs ondansetron 4 mg disintegrating 4 mg PO Q6H PRN nausea and 06/08/23 tablet vomiting #10 tabs pregabalin 150 mg capsule 150 mg PO BID #20 caps 06/08/23 valacyclovir 1 gram tablet 1,000 mg PO BID 10 days #20 tabs 06/08/23 (Valtrex) Allergies Allergy/AdvReac Type Severity Reaction Status Date / Time NSAIDS (Non-Steroidal AdvReac Verified 04/27/23 14:18 Anti-Inflamma PFSH PFS Disclaimer: The information contained in this section may have been updated after the patient was seen, as this information can be updated by other users. Medical History , VE[employer]TE[employer]) Neuropathy Patient new to facility Surgical History , VEHICLE MAINTENANCE SUPERVISOR) History of hysterectomy History of tonsillectomy History of tubal ligation Family History , VEHICLE MAINTENANCE SUPERVISOR) Hypertension Asthma Social History (Rev
== END 2023-06-08 19:10 | disposition home or self-care (01) ==
PROVIDERS: Emergency Provider Emergency Medicine; PCP Nurse Practitioner Family
DX: B02.9 Zoster without complications (principal); R50.9 Fever, unspecified; R11.2 Nausea with vomiting, unspecified; J02.9 Acute pharyngitis, unspecified; R09.81 Nasal congestion
CPT/HCPCS: 87636; 99283

== ENCOUNTER → 2023-06-13 09:06 | Outpatient (CLI) | payer BC, SELFPAY ==
[2023-06-13 20:57] LABS: Amphetamine/Metha Screen,Urine Negative ng/ml (<1000); Barbiturates Screen,Urine Negative ng/ml (<200)
[2023-06-13 20:58] LABS: Benzodiazepines Screen,Urine Negative ng/ml (<200)
[2023-06-13 21:01] LABS: Cannabinoid Screen,Urine Negative ng/ml (<50)
[2023-06-13 21:02] LABS: Cocaine Screen,Urine Negative ng/ml (<300); Methadone Screen,Urine Negative ng/ml (<300)
[2023-06-13 21:03] LABS: Opiate Screen,Urine Negative ng/ml (<300)
[2023-06-13 21:04] LABS: Phencyclidine Screen,Urine Negative ng/ml (<25)
== END ==
PROVIDERS: PCP Family Medicine; Visit Provider Family Medicine
DX: Z79.899 Other long term (current) drug therapy (principal)
CPT/HCPCS: 80305

== ENCOUNTER 2023-06-20 22:03 | Emergency (ER) | payer BC, SELFPAY ==
[2023-06-20 22:03] VITALS: BP 143/96; PULSE 74; RESP 20; TEMP 36.6; O2SAT 100; BMI 31.7
--- NOTE | 2023-06-20 22:10 | PC.NURSE ---
Dr. Taveras in room at this time
--- NOTE | 2023-06-20 22:18 | ED_ITS ---
Discharge Plan Disposition Patient Disposition: Home, Self-Care Prescriptions Prescriptions: No Action levetiracetam [Keppra] 500 mg tablet 500 mg PO BID 30 Days Qty: 60 2RF [id number] [Bromfed DM] 2-30-10 mg/5 mL syrup 10 ml PO Q6H Qty: 118 0RF valacyclovir [Valtrex] 1 gram tablet 1,000 mg PO BID 10 Days Qty: 20 0RF pregabalin 150 mg capsule 150 mg PO BID Qty: 20 0RF sumatriptan succinate 50 mg tablet 50 mg PO NEEDED PRN (Reason: migraines) ondansetron HCl 4 mg tablet 4 mg PO Q8H PRN (Reason: nausea and vomiting) Qty: 7 0RF Referrals Follow up/Referrals: Provider,Referral, MD [Primary Care Provider] - See instructions Activity Restrictions/Add. Instructions Additional Instructions/Restrictions: Your symptoms today are consistent with acute stress reaction and known exacerbation of your psychogenic nonepileptic seizures which you have all your neurologist for. Please continue to take your Keppra and your Lyrica no other emergency tests are needed. Please make sure that you have a ride home and that you continue to use seizure precautions regarding driving bathing etc. Please keep your follow-up appoint with your neurologist. Clinical Impressions Clinical Impression: Acute reaction to stress, Psychogenic nonepileptic seizure Instructions Patient Instructions: DI for Seizure Disorder -- Adult, DI for Seizure (Not Epilepsy/Seizure Disorder), DI for Seizure Disorder -- Child Discharge ED Provider: Javier Taveras General Adult HPI General Chief complaint: Seizure Stated complaint: seizure at a traffic stop Time Seen by Provider: 06/20/23 22:09 Mode of Arrival: EMS Source of Information: Patient and EMS Limitations: No Limitations Description of Symptoms (Recalled from ER Triage Doc. by RN): Patient states that she has seizures when she is stressed out. Patient out pulled over for tag and states that she had a seizure. EMS states that she was not seizing or postictalon thier arrival. Patient AAOx4. Only complaint patient has is that she has been congested for a couple of weeks and got a steriod shot at dr office but still SOA while ambulating. History of Present Illness HPI narrative: Patient is a 48-year-old female who has a history of psychogenic nonepileptic seizures she states that she has been evaluated extensively by neurologist at [facility] in the past she has been told that she has seizures associated with stress. She is on Keppra and Lyrica has not missed any doses of her medic ations. She states that this past summer she was having a lot of these episodes that were associated with significant stress but that she had several months of improvement. 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 She denies any headache changes in consciousness nausea vomiting diarrhea or other acute symptoms leading up to today. She states this is very similar to episode she has had in the past. Nothing out of the ordinary. Related Data Home Medications Medication Instructions Recorded Confirmed sumatriptan succinate 50 mg tablet 50 mg PO NEEDED PRN migraines 04/27/23 06/20/23 Previous Rx's Medication Instructions Recorded levetiracetam 500 mg tablet 500 mg PO BID 30 days #60 tabs 03/13/23 (Keppra) ondansetron HCl 4 mg tablet 4 mg PO Q8H PRN nausea and 04/27/23 vomiting #7 tabs [id number] 10 ml PO Q6H #118 mL 06/13/23 2 mg-30 mg-10 mg/5 mL oral syrup (Bromfed DM) pregabalin 150 mg capsule 150 mg PO BID #20 caps 06/13/23 valacyclovir 1 gram tablet 1,000 mg PO BID 10 days #20 tabs 06/13/23 (Valtrex) Allergies Allergy/AdvReac Type Severity Reaction Status Date / Time NSAIDS (Non-Steroidal AdvReac Verified 06/13/23 11:25 Anti-Inflamma PFSH PFS Disclaimer: The information contained in this section may have been updated after the p aracelijonn was seen, as this information can be updated by other users. Medical History Neuropathy Patient new to facility Surgical History History of hysterectomy History of tonsillectomy History of tubal ligation Family History Other Asthma Hypertension Social History Smoking Status: Never smoker alcohol intake: never current occupational status: employed Travel in the last 8 weeks: None ROS Obtained: Yes All systems reviewed & no additional complaints except as documented Physical Exam General General appearance: anxious Respiratory Respiratory exam: Present normal lung sounds bilaterally Cardiovascular Cardiovascular exam: Present regular rate Neurological Exam Neurological exam: Present alert, oriented X3, CN II-XII intact and normal gait; Absent motor sensory deficit Medical Decision Making Myron Inquiry Pt receiving controlled substance: No Vital Signs: 06/20/23 22:03 Temperature 97.8 F Temperature Source Oral Pulse Rate [Radial] 74 Respiratory Rate 20 Blood Pressure [Left Arm] 143/96 H Blood Pressure Mean [Left Arm] 111 Blood Pressure Source [Left Arm] Automatic Cuff Blood Pressure Position [Left Arm] Sitting 02 Sat by Pulse Oximetry 100 Oxygen Delivery Method Room Air Medical Decision Narrative: Still is a very well-appearing 48-year-old female with a normal neurologic exam and now GCS of 15 nonfocal exam no evidence of being postictal. She had no preceding symptoms today other than acute distress. She is on Keppra and Lyrica and is followed by neurologist. These episodes are similar to chronic episode she has had in the past for which she has been extensively evaluated. No indication for any blood test CAT scans etc. She does not need to load with further medications there is no evidence of status epilepticus. These are consistent with acute stress induced seizures most likely nonepileptic. She has been given seizure precautions and advised to follow-up with her neurologist as previously instructed. She is agreeable to this plan and was discharged in stable condition. Critical Care Critical Care Time Critical Care Time: No
[2023-06-20 22:26] VITALS: BP 147/77; PULSE 68; O2SAT 99
[2023-06-20 23:49] VITALS: BP 147/77; PULSE 70; RESP 18; TEMP 36.8; O2SAT 99
== END 2023-06-20 23:51 | disposition home or self-care (01) ==
PROVIDERS: Emergency Provider Student in an Organized Health Care Education/Training Program
DX: G40.909 Epilepsy, unspecified, not intractable, without status epilepticus (principal)
CPT/HCPCS: 99283